=== PATIENT | male | born 2000 | race Caucasian/White ===

== ENCOUNTER 2023-07-12 12:12 | Emergency (ER) | payer OTHER ==
[~2023-07-12] VITALS: Ht 180.3 cm; Wt 79.0 kg
[2023-07-12] MEDS ORDERED: MILK400S12 PO (12:20)
[2023-07-12] MEDS ORDERED: ONDANSETRON 4MG 2ML VIAL IV ONE (12:50)
[2023-07-12] MEDS ORDERED: KETOROLAC 30 MG/ML 1ML VIAL IV ONE (12:50)
[2023-07-12] MEDS ORDERED: ISOVUE-370 76% 100ML VIAL As Ordered ONE (12:58)
[2023-07-12 13:08] LABS: BASO # 0.1 10^3/uL (0.0-0.2); BASO % 0.3 % (0.0-1.0); EOS % 0.1 % (0.0-3.0); HEMATOCRIT 45.3 % (42.0-52.0); HEMOGLOBIN 16.4 g/dl (13.5-17.5); LYMPH # 0.9 10^3/uL (1.5-5.0); LYMPH % 6.1 % (24.0-44.0); MEAN CORPUSCULAR HEMOGLOBIN 30.3 pg (27.0-33.0); MEAN CORPUSCULAR HGB CONC 36.2 g/dl (32.0-36.5); MEAN CORPUSCULAR VOLUME 83.6 fl (80.0-96.0); MONO # 0.8 10^3/uL (0.0-0.8); MONO % 5.3 % (2.0-8.0); NEUTROPHILS # 12.9 10^3/uL (1.5-8.5); NEUTROPHILS % 87.8 % (36.0-66.0); PLATELET COUNT, AUTOMATED 268 10^3/uL (150-450); RED BLOOD COUNT 5.42 10^6/uL (4.30-6.10); WHITE BLOOD COUNT 14.7 10^3/uL (4.0-10.0)
[2023-07-12] MEDS ORDERED: NS 1,000 ML IV ONE (13:30)
[2023-07-12 13:34] LABS: ALBUMIN 4.6 G/DL (3.2-5.2); BILIRUBIN,DIRECT 0.4 MG/DL (<0.4); BILIRUBIN,TOTAL 1.1 MG/DL (0.3-1.2); TOTAL PROTEIN 7.4 G/DL (5.7-8.2)
[2023-07-12] MEDS ORDERED: BISACODYL 10MG SUPP PR ONE (13:55)
[2023-07-12 14:55] VITALS: BP 132/74; TEMP 98.4; O2SAT 100
== END 2023-07-12 15:00 | disposition home or self-care (01) ==
LOC: M ED 12:12
DX: K52.9 Noninfective gastroenteritis and colitis, unspecified (principal); K59.00 Constipation, unspecified; Z79.899 Other long term (current) drug therapy
CPT/HCPCS: 74177; 80047; 80076; 83690; 85025; 96361; 96374; 99284; J1885; J2405; Q9967

== ENCOUNTER 2023-12-18 07:03 | Day surgery (SDC) | payer OTHER ==
[~2023-12-18] VITALS: Ht 180.3 cm; Wt 80.0 kg
[2023-12-18] MEDS: NS 1,000 ML IV ONE (06:00)
[~2023-12-18 07:03] MED LIST: MILK400S12 PO; THERTAB52 PO
[2023-12-18] MEDS ORDERED: propofoL 200 MG/20 ML VIAL As Ordered ONE (08:51)
[2023-12-18 09:41] VITALS: BP 116/56; TEMP 97.9; O2SAT 100
== END 2023-12-18 09:50 | disposition home or self-care (01) ==
LOC: M OPP 07:03
PROVIDERS: ATTEND Internal Medicine Gastroenterology
DX: K63.5 Polyp of colon (principal); K64.8 Other hemorrhoids; K64.4 Residual hemorrhoidal skin tags; R19.7 Diarrhea, unspecified; F17.200 Nicotine dependence, unspecified, uncomplicated